=== PATIENT | male | born 1955 | race Caucasian/White ===

== ENCOUNTER 2018-09-30 12:55 | Emergency (ER) | payer BC, OTHER ==
[2018-09-30 13:32] VITALS: BP 114/77
--- NOTE | 2018-09-30 13:34 | UC ---
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 PT ALSO HIT THE RIGHT SIDE OF HIS HEAD ON THE CEMENT FLOOR. HE DENIES LOC BUT SAID HE "GOT THE WIND KNOCKED OUT OF HIM" AND HAD A HARD TIME CATCHING HIS BREATH AFTER FALL. DENIES SOB NOW OTHER THAN PAINFUL TO TAKE A DEEP BREATH. " -SOB lasted 3-4 secs -wouldnt come in unless he had to. [place]. -hirts to take a deep breath. - History Of Current Complaint Chief Complaint: UCGeneralIllness Stated Complaint: SP FALL-RIB PAIN,RT SHOULDER, HEAD INJURY-WC Time Seen by Provider: 09/30/18 13:32 Pain Intensity: 7 - Allergies/Home Medications Allergies/Adverse Reactions: Allergies Allergy/AdvReac Type Severity Reaction Status Date / Time No Known Allergies Allergy Verified 09/30/18 13:16 Home Medications: Home Medications Aspirin [Aspirin Childrens 81 MG] 81 mg PO DAILY 09/30/18 [History Confirmed ] Metoprolol Tartrate TAB* [Lopressor TAB*] 50 mg PO DAILY 09/30/18 [History Confirmed 09/30/18] hydroCHLOROthiazide [Hydrochlorothiazide] 12.5 mg PO DAILY 09/30/18 [History Confirmed 09/30/18] PMH/Surg Hx/FS Hx/Imm Hx Cardiovascular History: Hypertension - Surgical History Surgical History: Yes Surgery Procedure, Year, and Place: 2011 - CHOLECYSTECTOMY. 1973 - BOWEL OBSTRUCTION. [facility] - as a baby - Family History Known Family History: Positive: Hypertension - Social History Alcohol Use: None Substance Use Type: None Smoking Status (MU): Former Smoker When Did the Patient Quit Smoking/Using Tobacco: 1987 Review of Systems All Other Systems Reviewed And Are Negative: Yes Constitutional: Positive: Negative Skin: Positive: Negative Eyes: Positive: Negative ENT: Positive: Negative Respiratory: Positive: Negative Cardiovascular: Positive: Negative Gastrointestinal: Positive: Negative Genitourinary: Positive: Negative Motor: Positive: Other - pain at right upper anterior and posterior torso. pain w/ lifting arm due to thoracic wall pain Neurovascular: Positive: Negative Musculoskeletal: Positive: Other: - see above Neurological: Positive: Negative Psychological: Positive: Negative Is Patient Immunocompromised?: No Physical Exam Triage Information Reviewed: Yes Appearance: Pain Distress - very pleasant, moderate discomfort. moves slowly Vital Signs: Initial Vital Signs Temp 97.4 F 09/30/18 13:20 Pulse 60 09/30/18 13:20 Resp 20 09/30/18 13:20 BP 114/77 09/30/18 13:20 Pulse Ox 98 09/30/18 13:20 Eye Exam: Normal ENT: Positive: Pharynx normal, TMs normal, Other - scalp NC/AT. no abrasions. no lacs Neck exam: Normal Neck: Positive: Supple, Nontender, No Lymphadenopathy, Other: - trachea midline. c-spine NT Respiratory: Positive: Lungs clear, Normal breath sounds, No respiratory distress, No accessory muscle use, Other: - bulging medial clavicle, tender to palpation. good breath sounds in this area and all other areas of discomfort.no bruising or other swelling. Negative: Crackles, Rhonchi, Stridor, Wheezing Cardiovascular Exam: Normal Cardiovascular: Positive: RRR, No Murmur, Pulses Normal Abdominal Exam: Normal Musculoskeletal: Positive: Other: - see above. right shoulder w/ limitied active ROM d/t thoracic and back pain Neurological Exam: Normal Neurological: Positive: Alert Psychological Exam: Normal Skin Exam: Normal Truncal Trauma Course/Dx - Course Course Of Treatment: -rt clavicel xray & rt ribs/chest xray: REPORT: #. Negative for clavicle fracture or sternoclavicular or acromioclavicular articular malalignment. #. Moderately severe AC joint osteoarthritis. #. RIGHT seventh and eighth posterior rib fractures without displacement. No pulmonary contusion, pleural effusion, or pneumothorax evident. #. Elevated lung volumes suggest potential obstructive lung disease. #. The heart, pulmonary vasculature, and mediastinal contours are unremarkable. IMPRESSION: #. RIGHT seventh and eighth posterior rib fractures without displacement. No pulmonary contusion, pleural effusion, or pneumothorax evident. #. Negative for clavicle fracture or sternoclavicular or acromioclavicular articular malalignment. -he takes naproxyn 200 mgs for pain prn - can take 2 po bid for pain. doesnt wantanything more. -recommend go to ER if sx worsen or no better - would recommend CT -911 w. any SOB, sudden worsening sx -he understood em well and is very agreeabel w/ plan - Differential Dx/Diagnosis Differential Diagnosis/HQI/PQRI: Chest Wall Contusion, Rib Fracture Provider Diagnosis: Right rib fracture Discharge - Sign-Out/Discharge Documenting (check all that apply): Patient Departure All imaging exams completed and their final reports reviewed: Yes - Discharge Plan Condition: Stable Disposition: HOME Patient Education Materials: Rib Fracture (ED) Forms: *Work Release Referrals: Adriel Sanchez PA [Primary Care Provider] - 2 Days Additional Instructions: -Naproxyn as needed for pain -ice frequently -call 911 with shortness of breath or sudden worsening of pain -Recommend CT clavicle if your symptoms are not better -non-displaced fractures of posterior ribs 7 & 8. -I have printed a copy of your report to take with you - Billing Disposition and Condition Condition: STABLE Disposition: Home
== END 2018-09-30 14:47 | disposition home or self-care (01) ==
LOC: UCCORT 12:55
DX: S22.41XA Multiple fractures of ribs, right side, initial encounter for closed fracture (principal); W17.89XA Other fall from one level to another, initial encounter; Y92.89 Other specified places as the place of occurrence of the external cause; I10 Essential (primary) hypertension; Z87.891 Personal history of nicotine dependence; M19.019 Primary osteoarthritis, unspecified shoulder
CPT/HCPCS: 99211; G0463

== ENCOUNTER 2019-01-22 07:40 | Day surgery (SDC) | payer OTHER ==
[~2019-01-22 07:40] MED LIST: Buffered Lidocaine 1% SYRIN* 1 ML/SYRINGE INTRADERM ONE; Dexamethasone IV* 4 MG/ML 1 ML (4 MG) IV SLOW PU ONE; Dexamethasone IV* 4 MG/ML 1 ML (4 MG) ONE; Lactated Ringers 1000 ML Bag* 1,000 ML IV SCH
[2019-01-22] MEDS ORDERED: ceFAZolin 2 GM PREMIX in ORs 2 GM/50 ML BAG ONE (07:57)
[2019-01-22] MEDS ORDERED: Famotidine IV* 10 MG/ML 2 ML (20 mg) ONE (08:20)
[2019-01-22] MEDS ORDERED: ROPIVACAINE 5 MG/ML 30 ML BTL (0.5%) ONE (08:31)
[2019-01-22] MEDS ORDERED: Bupivacaine 0.25% SDV* 30 ML ONE (08:31)
[2019-01-22] MEDS ORDERED: fentaNYL* 50 MCG/ML 2 ML VIAL (100 MCG VIAL) ONE ×2 (08:34→10:29)
[2019-01-22] MEDS ORDERED: Midazolam* 1 MG/ML 5 ML VIAL (5 MG) ONE (08:34)
[2019-01-22] MEDS ORDERED: Atracurium* 10 MG/ML 10 ML VIAL ONE (08:34)
[2019-01-22] MEDS ORDERED: Ondansetron INJ* 2 MG/ML VIAL ONE (08:36)
[2019-01-22] MEDS ORDERED: Propofol* 10 MG/ML 20 ML BTL ONE (08:36)
[2019-01-22] MEDS ORDERED: Ondansetron INJ* 2 MG/ML VIAL IV PRN (09:58)
[2019-01-22] MEDS ORDERED: Naloxone* 0.4 MG/ML 1 ML VIAL IV PRN (09:58)
[2019-01-22] MEDS ORDERED: oxyCODONE/Acetamin 5/325 MG* TAB PO PRN (09:58)
[2019-01-22] MEDS ORDERED: HYDROmorphone INJ1* 1 MG/ML SYRINGE IV PRN (09:58)
[2019-01-22] MEDS ORDERED: fentaNYL* 50 MCG/ML 2 ML VIAL (100 MCG VIAL) IV PRN (09:58)
[2019-01-22] MEDS ORDERED: DiMENhydriNATE IV* 50 MG/ML VIAL IV PUSH PRN (09:58)
[2019-01-22] MEDS ORDERED: EPHEDrine (Pressors)* 50 MG/ML VIAL ONE (10:09)
[2019-01-22 13:43] VITALS: BP 110/77
--- NOTE | 2019-01-23 02:42 | OP ---
DATE OF OPERATION: 01/22/19 [facility] DATE OF : 55 SURGEON: Natividad Gill MD. SENIOR SECURITY ENGINEER: NENITA Hagan. An trust operations assistant was needed for the entirety of the case to help in positioning, retraction, and was utilized throughout all portions of the case. ANESTHESIOLOGIST: Dr. Reardon. ANESTHESIA: General interscalene block. PRE-OP DIAGNOSES: 1. Right shoulder full-thickness tear of supraspinatus. 2. Ruptured biceps. POST-OP DIAGNOSES: Full-thickness massive tear of the supraspinatus and some of the infraspinatus with superior migration of humeral head and significant retraction with ruptured biceps. OPERATIVE PROCEDURE: Right shoulder arthroplasty with; 1. Extensive glenohumeral debridement. 2. Rotator cuff repair of the supra and infraspinatus tendon in double row fashion for massive tear with an Regeneten patch augmentation. 3. Subacromial decompression with acromioplasty COMPLICATIONS: None. ESTIMATED BLOOD LOSS: Minimal. IMPLANTS USED: Two Healicoils, 2 MultiFixes, and one Regeneten patch size medium. INDICATIONS: Edil Peters is a 63-year-old male who sustained an injury on 09/30 at his work. 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 He had failed conservative management and elected to proceed with surgical treatment. The risks and benefits were discussed at length including but not limited to bleeding, infection, damage to nerves, vessels, surrounding structures, wound nonhealing, persistent pain, need for surgery, scarring, stiffness, incomplete relief of symptoms; risk of anesthesia. DESCRIPTION OF PROCEDURE: The patient was greeted in the preoperative area by attending surgeon. The correct extremity was marked and consent was confirmed. The patient then underwent interscalene nerve block by anesthesiologist. The patient was brought back to the operating suite and placed in the supine position on the operating table, then underwent general anesthesia and endotracheal intubation after which he was placed in the left lateral decubitus position with an axillary roll. All bony prominences were padded and secured with a pegboard. The right shoulder was draped unsterile with 10 pounds of traction. The right shoulder was then prepped and draped in the usual sterile fashion beginning with chlorhexidine soap, scrub, and alcohol wipe and a final prep with ChloraPrep. After appropriate surgical pause, indicating side, site, procedure, and administration of antibiotics; the standard postero-lateral portal was made sharply with 11-blade. The scope was introduced into the joint and the joint was examined. There was evidence of full-thickness tear of the supraspinatus, some of the infraspinatus. The subscap appeared to be intact. The anterior portal was made in outside-in fashion. A shaver was used to debride back the anterior, posterior, and superior labrum. The biceps had already been ruptured previously. The subscap was intact. The inferior recess was intact. The shoulder was superiorly subluxed, which made this case somewhat challenging. Once the intraarticular portion was completed, attention was directed to the subacromial space. The scope was positioned in the subacromial space. Lateral portal was made in outside-in fashion. Shaver was used debride back the abundant thick bursa to try to identify where the rotator cuff edges were, which were medial to the glenoid. This took some time to be identified. The undersurface of the acromion was skeletonized using an electro-cautery device and then a 4-0 oval bur was used to do an acromioplasty. After this was done, attention was directed to the rotator cuff. The cuff was identified, it was displaced medial to the glenoid, appeared to be a supraspinatus tear with a longitudinal component involving the anterior border of the infraspinatus. This requires significant time to manipulate the tendon to allow to mobilize as this was very scarred and tethered medially. Now once this was identified, a [id number] stitching began. Three sutures were then placed in a [id number] position, this helped. There was a fair amount of tension on the cuff; therefore, a tension suture was also placed to use to help facilitate passing of the sutures. Once these were tied down, this helped to bring the cuff closer to the greater tuberosity. The cuff was able to be brought to the edge of the tuberosity that was not allowed to overlap over it and there was concern that there will be too much tension on the repair. After the cuff was closed side to side, it was mobilized and now was able to be brought at least to the tuberosity edge. The implants began being placed, so two separate stab incisions were made for the healicoil anchors were placed with excellent purchase. The bone quality was pretty good. These were loaded with suture tape as well as Ortho Braid sutures. The sutures were then passed through an anterior posterior fashion in horizontal mattress configuration. These were then tied down and this helped again with repair of the cuff. One more side-to- side suture had been placed at anterior aspect and it was tied down. Sutures were kept for double row fixation. Two MultiFix anchors were then placed for a lateral row fixation, one anteriorly with each strand of the previously tied sutures and then second MultiFix anchor was placed postero-laterally in a similar fashion. This helped to compress the cuff and reapproximate and allowed for double row fixation. Decision was made because this was an extremely large tear and the patient is young that to augment the healing and repair, we used a Regeneten patch. This could help decrease pain as well as allow to augment healing. The size medium patch was brought to the field. This was then secured medially with tendon merari and laterally with a PEEK merari to the bone. This was well fixed. The shoulder was then taken to gentle range of motion. The wounds were then copiously irrigated with sterile saline. The portals were closed with 3-0 nylon in interrupted fashion. The repair took approximately 45 minutes longer because of the need to breakthrough adhesions then typically would have taken. The sterile dressings were applied. A Cryo/Cuff and UltraSling were applied. He was awoken from anesthesia and transferred to the PACU in stable condition. POSTOPERATIVE PLAN: He will be nonweightbearing in the sling for safety. Discharged on pain medication. DVT prophylaxis was considered, but deferred due to no previous personal or family history. I will see the patient back in 10 to 14 days. [id number]/[facility] #: [id number] EVELYN
== END 2019-01-22 13:20 | disposition home or self-care (01) ==
LOC: OREAST 07:40
PROVIDERS: ATTEND Orthopaedic Surgery
DX: S46.011A Strain of muscle(s) and tendon(s) of the rotator cuff of right shoulder, initial encounter (principal); S46.111A Strain of muscle, fascia and tendon of long head of biceps, right arm, initial encounter; X58.XXXA Exposure to other specified factors, initial encounter; Y92.9 Unspecified place or not applicable; Y99.0 Civilian activity done for income or pay; G89.18 Other acute postprocedural pain; I10 Essential (primary) hypertension; K21.9 Gastro-esophageal reflux disease without esophagitis; M19.90 Unspecified osteoarthritis, unspecified site; Z87.891 Personal history of nicotine dependence
CPT/HCPCS: C1713; J0690; J1100; J2250; J2405; J2704; J2795; J3010; J3490